=== PATIENT | female | born 1970 | race Two or more races ===

== ENCOUNTER 2022-09-25 19:28 | Emergency (ER) | payer OTHER ==
[~2022-09-25] VITALS: Ht 152.4 cm; Wt 68.5 kg
[2022-09-25] MEDS ORDERED: LOSARTAN-HCTZ1 EAC2 PO (19:49)
== END 2022-09-25 22:19 | disposition home or self-care (01) ==
LOC: ER 19:28
DX: M79.645 Pain in left finger(s) (principal); I10 Essential (primary) hypertension

== ENCOUNTER 2022-10-29 09:09 | Emergency (ER) | payer OTHER ==
[~2022-10-29] VITALS: Ht 167.6 cm; Wt 90.7 kg
[~2022-10-29 09:09] MED LIST: LOSARTAN-HCTZ1 EAC2 PO
== END 2022-10-29 09:42 | disposition home or self-care (01) ==
LOC: ER 09:09
DX: B76 Hookworm diseases (principal)

== ENCOUNTER 2024-10-11 07:58 | Emergency (ER) | payer OTHER ==
[~2024-10-11] VITALS: Ht 167.6 cm; Wt 79.4 kg
== END 2024-10-11 10:34 | disposition home or self-care (01) ==
LOC: ER 07:58
DX: M25.562 Pain in left knee (principal)